=== PATIENT | female | born 2000 | race African-American/Black ===

== ENCOUNTER → 2023-07-09 | Emergency (ER) | payer OTHER ==
[~2023-07-09] VITALS: Ht 167.6 cm; Wt 90.9 kg
[2023-07-09 12:29] VITALS: TEMP 98.2
[2023-07-09 14:38] VITALS: BP 141/89; PULSE 88; RESP 18
[2023-07-09] MEDS: IBUPROFEN 600 MG TABLET PO ONE (14:38)
== END | disposition still patient (30) ==
LOC: EMS 12:13
DX: S83.92XA Sprain of unspecified site of left knee, initial encounter (principal); X58.XXXA Exposure to other specified factors, initial encounter; Y93.01 Activity, walking, marching and hiking; Y92.89 Other specified places as the place of occurrence of the external cause; Y99.8 Other external cause status
CPT/HCPCS: 99283